=== PATIENT | male | born 1980 | race Caucasian/White ===

== ENCOUNTER 2019-04-06 21:14 | Emergency (ER) | payer MEDICAID, OTHER ==
[~2019-04-06] VITALS: Ht 193 cm; Wt 97.0 kg
[~2019-04-06 21:14] MED LIST: NO HOME MEDS
[2019-04-06 21:31] VITALS: BP 128/88
[2019-04-06] MEDS ORDERED: LIDOcaine 1% w/epiNEPHrine 1:200,000 30ml vial IM ONE (21:55)
[2019-04-06] MEDS ORDERED: TETanus/Pertussis (Acell)/Diphther VAC/PF (Tdap-Adult) 0.5ml syringe IM ONE (21:55)
== END 2019-04-07 00:14 | disposition home or self-care (01) ==
LOC: ER 21:15
DX: S81.812A Laceration without foreign body, left lower leg, initial encounter (principal); W22.8XXA Striking against or struck by other objects, initial encounter; Y93.I9 Activity, other involving external motion; Y92.488 Other paved roadways as the place of occurrence of the external cause; Y99.8 Other external cause status
CPT/HCPCS: 12004; 73590; 99284

== ENCOUNTER 2019-07-30 12:13 | Inpatient (IN) | payer MEDICAID, OTHER ==
[~2019-07-30] VITALS: Ht 193 cm; Wt 90.9 kg
[2019-07-30] MEDS ORDERED: ketorolac trometh. 30mg/ml inj. IV ONE (12:25)
[2019-07-30] MEDS ORDERED: metoclopramide 5 mg/ml inj IV ONE (12:25)
[2019-07-30] MEDS ORDERED: normal saline 1000ML IV soln IVB ONE ×2 (12:25)
[2019-07-30] MEDS ORDERED: diphenhydrAMINE 50 mg/ml inj IV ONE (12:25)
[2019-07-30] MEDS ORDERED: glycopyrrolate 0.2mg/ml inj IV ONE (12:25)
[2019-07-30 12:54] LABS: BASOPHILS % (AUTO) 0.2 % (0-1); EOSINOPHILS % (AUTO) 0.2 % (0-6); HEMATOCRIT 45.2 % (42.0-52.0); HEMOGLOBIN 15.3 g/dl (14.0-17.9); LYMPHOCYTES # (AUTO) 0.8 X10'3 (1.1-4.8); LYMPHOCYTES % (AUTO) 7.1 % (21-51); MEAN CORPUSCULAR HEMOGLOBIN 29.4 PG (27.0-31.0); MEAN CORPUSCULAR HGB CONC 33.8 g/dL (33.0-36.5); MEAN PLATELET VOLUME 8.1 FL (7.4-10.4); MONOCYTES # (AUTO) 0.7 X10'3 (0-0.9); MONOCYTES % (AUTO) 6.5 % (2-12); NEUTROPHILS # (AUTO) 9.6 X10'3 (1.8-7.7); PLATELET COUNT 249 X10'3 (140-440); RED CELL DISTRIBUTION WIDTH 13.5 % (11.5-14.5); WHITE BLOOD COUNT 11.2 X10'3 (4.5-11.0)
[2019-07-30 13:10] LABS: ALANINE AMINOTRANSFERASE 129 U/L (12-78); ALBUMIN 3.7 G/DL (3.4-5.0); ASPARTATE AMINO TRANSFERASE 124 U/L (10-37); BLOOD UREA NITROGEN 15 MG/DL (7-18); CREATININE 0.88 MG/DL (0.60-1.10); GLUCOSE 105 MG/DL (70-104); LIPASE 83 U/L (73-393); eGFR > 90 ML/MIN
[2019-07-30 13:11] LABS: ALBUMIN/GLOBULIN RATIO 0.9 (1.1-1.5); ALKALINE PHOSPHATASE 115 IU/L (46-116); ANION GAP 9 (8-16); BILIRUBIN,TOTAL 0.7 MG/DL (0.1-1.0); CHLORIDE 106 MMOL/L (99-107); POTASSIUM 3.9 MMOL/L (3.5-5.1); SODIUM 141 MMOL/L (135-145); TOTAL CARBON DIOXIDE 26.4 MMOL/L (24-32); TOTAL PROTEIN 7.9 G/DL (6.4-8.2)
--- NOTE | 2019-07-30 13:54 | NUR ---
TO CT VIA [facility].
[2019-07-30] MEDS ORDERED: CefTRIAXone 2gm/D5W 50ml 50 ML IV ONE (14:55)
--- NOTE | 2019-07-30 15:29 | NUR ---
PT REQUESTING PAIN MEDS. PT AWAKENS FROM SLEEP TO REQUEST PAIN MEDS THEN IMMEDIATELY GOES BACK TO SLEEP. MADE PROVIDER AWARE.
[2019-07-30] MEDS ORDERED: ondansetron/PF 4mg/2ml inj IV ONE (15:35)
[2019-07-30] MEDS ORDERED: morphine 4 MG/ML inj SYRINge IV ONE (15:35)
[2019-07-30 15:41] LABS: CLARITY,URINE SLIGHTLY CLOUDY (Clear); COLOR,URINE YELLOW (Yellow); GLUCOSE, URINE NEGATIVE (Neg); KETONES,URINE 15 mg/dl (Neg); LEUKOCYTE ESTERASE ,URINE NEGATIVE (Neg); NITRITES, URINE NEGATIVE (Neg); OCCULT BLOOD,URINE NEGATIVE (Neg); PROTEIN,URINE NEGATIVE (Neg)
[2019-07-30 15:53] LABS: UA COLLECTION TYPE CLN CATCH MIDSTREAM
[2019-07-30 15:54] LABS: AMORPHOUS PHOSPHATES 2+; MUCUS STRANDS FEW /LPF (Neg); SQUAMOUS EPITHELIAL CELL,UR FEW /LPF (FEW)
[2019-07-30 15:55] LABS: BACTERIA,URINE FEW /HPF (Neg); RBC,URINE 0-2 /HPF (0-2); WBC,URINE 0-4 /HPF (0-4)
[2019-07-30] MEDS ORDERED: magnesium Cl slow-release 64mg tablet PO PRN (17:35)
[2019-07-30] MEDS ORDERED: magnesium 2GM in 50ml NS 50 ML IV PRN (17:35)
[2019-07-30] MEDS ORDERED: potassium CL 10mEq/100ml bag 100 ML IV PRN ×2 (17:35)
[2019-07-30] MEDS ORDERED: magnesium 4gm in 100ml NS 100 ML IV PRN (17:35)
[2019-07-30] MEDS ORDERED: potassium Cl 20 mEq SR tablet PO PRN ×2 (17:35)
[2019-07-30] MEDS ORDERED: morphine 2 MG/ML inj. syringe IV PRN (17:35)
[2019-07-30] MEDS ORDERED: ondansetron/PF 4mg/2ml inj IV PRN (17:35)
[2019-07-30] MEDS: normal saline 1000ml 1,000 ML IV SCH (17:57)
--- NOTE | 2019-07-30 20:30 | NUR ---
Received report from Mitzi DOBSON in ED. Given opportunities to ask questions and have them answered. Will assume care upon patient arrival.
[2019-07-30 20:50] VITALS: BP 110/69
[2019-07-30] MEDS: morphine 4 MG/ML inj SYRINge IV PRN (21:22)
--- NOTE | 2019-07-30 21:52 | NUR ---
Patient refused admission questioning, stated "I just want the pain medicine to work and to sleep." Will reattempt at a later time.
[2019-07-31] VITALS: BP 109/61
[2019-07-31] MEDS: normal saline 1000ml 1,000 ML IV SCH ×2 (03:33→16:34)
[2019-07-31 04:27] LABS: BASOPHILS % (AUTO) 0.3 % (0-1); EOSINOPHILS # (AUTO) 0.1 X10'3 (0-0.9); EOSINOPHILS % (AUTO) 0.7 % (0-6); HEMATOCRIT 44.1 % (42.0-52.0); HEMOGLOBIN 14.9 g/dl (14.0-17.9); LYMPHOCYTES # (AUTO) 1.1 X10'3 (1.1-4.8); MEAN CORPUSCULAR HEMOGLOBIN 29.7 PG (27.0-31.0); MEAN CORPUSCULAR HGB CONC 33.9 g/dL (33.0-36.5); MEAN CORPUSCULAR VOLUME 87.6 FL (78-98); MEAN PLATELET VOLUME 8.3 FL (7.4-10.4); MONOCYTES # (AUTO) 1.1 X10'3 (0-0.9); MONOCYTES % (AUTO) 11.7 % (2-12); NEUTROPHILS # (AUTO) 6.7 X10'3 (1.8-7.7); NEUTROPHILS % (AUTO) 75.3 % (42-75); PLATELET COUNT 262 X10'3 (140-440); RED BLOOD COUNT 5.03 X10'6 (4.70-6.10); RED CELL DISTRIBUTION WIDTH 13.6 % (11.5-14.5)
[2019-07-31 04:47] LABS: ANION GAP 7 (8-16); BLOOD UREA NITROGEN 10 MG/DL (7-18); BUN/CREATININE RATIO 10.9 (5.4-32.0); CALCIUM 8.7 MG/DL (8.5-10.1); CHLORIDE 103 MMOL/L (99-107); CREATININE 0.92 MG/DL (0.60-1.10); GLUCOSE 101 MG/DL (70-104); MAGNESIUM 1.7 MG/DL (1.5-2.4); SODIUM 137 MMOL/L (135-145); TOTAL CARBON DIOXIDE 26.8 MMOL/L (24-32); eGFR > 90 ML/MIN
--- NOTE | 2019-07-31 05:44 | NUR ---
Patient refused admission questioning, refused to speak much due to pain. Able to do 2 RN skin assessment and MRSA nasal swab.
--- NOTE | 2019-07-31 06:21 | NUR ---
Problems reprioritized. Patient report given, questions answered & plan of care reviewed with Sol DOBSON.
--- NOTE | 2019-07-31 06:57 | NUR ---
Patient in room MEG 348. I have received report from BRONSON Herman and had the opportunity to ask questions and assume patient care.
[2019-07-31 07:14] VITALS: BP 112/72
[2019-07-31] MEDS ORDERED: K and/or MAG REPLACEMENT MC SCH (08:00)
[2019-07-31] MEDS: morphine 4 MG/ML inj SYRINge IV PRN (08:59)
[2019-07-31 11:00] VITALS: BP 122/70
[2019-07-31] MEDS ORDERED: FLU VACC QS2019-20(6MOS UP)/PF 60 MCG/0.5 ML SYRINGE IMVAC ONE (11:05)
[2019-07-31] MEDS ORDERED: FLU VACC QS 2019-20 (6 MOS UP) 60 MCG/0.5 ML VIAL IMVAC ONE (14:00)
--- NOTE | 2019-07-31 18:26 | NUR ---
TRANSPORT CAME TO GET PATIENT FOR SURGERY, PATIENT REPORTED THAT HE HAD PASSED A LOT OF GAS AND THE PAIN IN HIS ABDOMEN WAS RELIEVED BUT HAD MOVED DOWN, PATIENT FELT SURGERY WAS NOT NECESSARY AND REFUSED SURGERY, DR. MARTINEZ NOTIFIED AND DR MARTINEZ SAID TO DISCHARGE PATIENT, NOTIFIED DR CERVANTES PATIENT STABLE AND APPROPRIATE FOR DISCHARGE, EDUCATION GIVEN, EG TAKEN OUT, ALL BELONGINGS SENT HOME WITH PATIENT, PATIENT TAKEN TO LOBBY IN WHEEL CHAIR TO AWAITING CAR WHERE FRIENDS WILL TAKE PATIENT HOME
== END 2019-07-31 18:23 | disposition home or self-care (01) ==
LOC: ER 12:13 → ED HOLD 17:33 → SUR 3N 19:59
PROVIDERS: ADMIT Internal Medicine; ATTEND Hospitalist
DX: K80.00 Calculus of gallbladder with acute cholecystitis without obstruction (principal); F15.90 Other stimulant use, unspecified, uncomplicated; F17.210 Nicotine dependence, cigarettes, uncomplicated; Z53.20 Procedure and treatment not carried out because of patient's decision for unspecified reasons; Z23 Encounter for immunization; Z88.8 Allergy status to other drugs, medicaments and biological substances
CPT/HCPCS: 36415; 74176; 76700; 80048; 80053; 81001; 83690; 83735; 84145; 85025; 87081; 96374; 96375; 99285; G0378; J0696; J1200; J1885; J2270; J2405; J2765; J3490; J7030; Q2037

== ENCOUNTER 2021-07-30 19:44 | Emergency (ER) | payer MEDICAID, OTHER ==
[~2021-07-30] VITALS: Ht 193 cm; Wt 79.0 kg
[2021-07-30 19:58] VITALS: BP 135/86
[2021-07-30 21:23] LABS: D-DIMER 0.86 MG/L FEU (0-0.50)
[2021-07-30] MEDS ORDERED: clindamycin 150mg capsule PO ONE (21:50)
[2021-07-30] MEDS ORDERED: CLIN300C63 PO (22:33)
--- NOTE | 2021-07-30 23:57 | NUR ---
PT WAS CALLED BY [employer], NOT IN LOBBY. NURSE ATTEMPTED TO CALL PT'S LISTED NUMBER TO CONTACT HIM, WAS TOLD THAT THERE WAS NO ONE BY HIS NAME AT THAT NUMBER, OTHER NUMBER LISTED ON CHART IS NO LONGER A WORKING NUMBER
== END 2021-07-31 03:00 | disposition left against medical advice (07) ==
LOC: ER 19:44
DX: L03.116 Cellulitis of left lower limb (principal); Z88.8 Allergy status to other drugs, medicaments and biological substances; Z79.2 Long term (current) use of antibiotics; F15.90 Other stimulant use, unspecified, uncomplicated
CPT/HCPCS: 36415; 85379; 99283